=== PATIENT | female | born 1950 | race Caucasian/White ===

== ENCOUNTER 2021-04-06 16:12 | Observation (INO) | payer MEDICARE, OTHER, SELFPAY ==
--- NOTE | 2021-03-25 10:22 | EKG12_ITS ---
Test Reason : PRE-OP Blood Pressure : / mmHG Vent. Rate : 068 BPM Atrial Rate : 068 BPM P-R Int : 152 ms QRS Dur : 072 ms QT Int : 382 ms P-R-T Axes : 034 -01 056 degrees QTc Int : 406 ms Sinus rhythm with Premature atrial complexes Low voltage QRS Septal infarct , age undetermined Abnormal ECG Confirmed by KIMANI CRAWFORD, RENETTA ([id number]), newspaper copy editor AV AQUINO ([id number]) on 03/26/2021 7:53:09 AM Referred By: Twin Horn Confirmed By:RENETTA HARMAN MD
--- NOTE | 2021-03-25 10:30 | EKG12_ITS ---
Test Reason : PRE-OP Blood Pressure : / mmHG Vent. Rate : 073 BPM Atrial Rate : 073 BPM P-R Int : 152 ms QRS Dur : 076 ms QT Int : 372 ms P-R-T Axes : 000 181 122 degrees QTc Int : 409 ms Suspect arm lead reversal, interpretation assumes no reversal Normal sinus rhythm with sinus arrhythmia Low voltage QRS Septal infarct Age undetermined Lateral infarct , age undetermined Abnormal ECG Recommend repeat ECG Confirmed by KIMANI CRAWFORD, RENETTA ([id number]), purchase request editor TAWNY OLIVER ([id number]) on 04/06/2021 4:27:21 PM Referred By: Twin Horn Confirmed By:RENETTA HARMAN MD
[2021-03-25 11:24] LABS: Hemoglobin 14.2 g/dL (12.0-15.0); Mean Corp Hgb Conc 32.3 g/dL (32-36); Mean Corpuscular Hgb 29.2 pg (27.0-32.0); Mean Corpuscular Volume 90.5 fL (81-99); Mean Platelet Vol. 10.5 fl (6.2-12.0); Platelet Count 258 K/mm3 (150-450); RBC Distribution Width CV 13.6 % (11.6-14.6); RBC Distribution Width SD 45.6 fl (35.1-43.9); Red Blood Count 4.86 M/mm3 (4.2-5.4); White Blood Count 5.6 K/mm3 (4.4-11.0)
[2021-03-25 11:51] LABS: Anion Gap 4 (5-15); BUN 21 mg/dL (7-18); BUN/Creat Ratio 27.5 RATIO (10-20); Chloride 101 mmol/L (98-107); Creatinine, Serum 0.76 mg/dL (0.55-1.02); EST Glomerular Filtration Rate 80 mL/min (>60); Est Glom Filt Rate - Afr Amer 96 mL/min (>60); Glucose 83 mg/dL (74-106); Potassium 4.2 mmol/L (3.5-5.1); Sodium Level 135 mmol/L (136-145)
[2021-03-25 11:53] LABS: Magnesium 2.2 mg/dL (1.6-2.6)
[2021-04-06] VITALS (16 sets, daily range): BP systolic 101–153; BP diastolic 58–78; PULSE 72–95; RESP 14–18; TEMP 36.1–36.6; O2SAT 92–100; BMI 28.0
[2021-04-06] MEDS: Gabapentin 600 MG Tablet PO (09:58)
[2021-04-06] MEDS: Acetaminophen 500 MG Tablet 1000 MG PO ×3 (09:58→21:43)
[2021-04-06 10:16] LABS: Bedside Glucose 126 mg/dL (70-110)
[2021-04-06] MEDS: Cefazolin 2 GM in 0.9% Normal Saline 100 ML IV (10:49)
--- NOTE | 2021-04-06 11:30 | KNEE_PTH ---
PATIENT: TIMOTHY RYDER LOC: MS3 U#:[id number] AGE/SX: 71/F ROOM: [facility] [place] RE04/06/[address]: Dr. Twin Horn DO : 1950 BED: 1 DIS: 04/07/2021 SPEC #: [id number] RECD: 04/07/21 07:30 STATUS: CECILIO SHABBIR #: [id number] VEDA: 04/06/21 11:[address]: Twin Horn DEPT: SURGICAL PATHOLOGY RECD BY: Maribell Corrigan ENTERED: 04/07/21 08:30 SP TYPE: TOTAL KNEE OTHR DR: Dr. Cassy Mast DO Tissues: Knee, NOS Procedures: Decalcification bone/plaque Surgery Specimen Level IV HEADER OPERATION: ERAS, total knee replacement robotic arm assist PRE-OP DIAGNOSIS: Osteoarthritis right knee; synovial cyst of popliteal space right knee TISSUE SUBMITTED: Right knee bone and soft tissue MICROSCOPIC DIAGNOSIS Bone and soft tissue, right knee, total knee replacement/resection: Pieces of bone with degenerative osteoarthritic changes. Fibroadipose tissue, fibroconnective tissue and reactive synovial tissue. JESUS:chloe 04/13/2021 MICROSCOPIC DESCRIPTION Slides are reviewed. GROSS DESCRIPTION Received is one container designated bone and soft tissue right knee. The specimen consists of multiple fragments of villar-yellow bone measuring in aggregate 16 x 12 x 2 cm. Also in the specimen container are multiple fragments of yellow-white soft tissue measuring in aggregate 9 x 8 x 2.5 cm. A number of bony fragments contain articular surfaces consistent with tibial plateau and femoral condyle and displaying prominent osteophyte formation, eburnation, and bone erosion. Institutional Research Coordinator sections are submitted in two cassettes as follows: 1 - soft tissue, 2 - bone after decalcification. / AM:chloe 04/07/21 TC:5 CPT: 78413, 60317
--- NOTE | 2021-04-06 12:21 | OP.PCM_ITS ---
Report of Operation Date of Procedure: 04/06/21 Pre-Operative Diagnosis: OA with valgus defoirmity right knee Post-Operative Diagnosis: same Surgery/Procedure Performed:: Right TKR Description of Surgical Findings:: Report of Operation Date of Procedure: Preoperative Diagnosis: [right ] knee primary osteoarthritis Postoperative Diagnosis: [right ] knee primary osteoarthritis Operation: Robotic Assisted Knee Total Arthroplasty, [right ] knee Surgeon: Dr Twin Horn DO Corporate Learning Consultant: Jose Wei PA-C Anesthesia: spina; Anesthesiologist: Dr. Mora Findings: Stable knee with good patella tracking Specimen(s): Bony cuts Complications: No intraoperative complications Estimated Blood Loss: 20 cc IV Fluids: 1000 cc crystalloid Implants Used: 1. Alina Triathlon press fit CR size 5 femur 2. [place] Triathlon size 4 tibia 3. 9 mm CS polyethylene 4. 35 mm patella Brief History Operative Indications: [ 71 y/o female ] with history of [ right ] knee osteoarthrosis with rad iographic findings with loss of joint space, osteophyte formation and subchondral sclerosis. Failed conservative measures as mentioned in the H&P. Discussion of total knee arthroplasty as well as risk and benefits were discussed with the patient including but not limited to blood loss, DVTs, PEs, neurovascular damage, general risk of anesthesia including loss of life, and stiffness or instability were also discussed with the patient. Patient demonstrated understanding and was able to sign informed consent. Procedure: On the date of procedure, patient's [right ] lower extremity was marked in the preoperative area. The patient was then taken back to the operating room where that patient was placed on the table in the supine position. All bony prominences were identified and well-padded. Anesthesia assumed control of the C-spine and airway throughout the remainder of the procedure. A tourniquet was placed on the [ right ] upper thigh and the leg was prepped in a sterile fashion. The surgeon then scrubbed at this time. Upon reentering the room, the [right ] lower extremity was draped in a standard orthopedic fashion. A timeout was then called and everyone agreed upon the side, the site, the procedure to be performed, patient's identity and antibiotics given. Esmarch bandage was used to exsanguinate the extremity and the tourniquet was placed up to 250 mmHg with the knee in flexion. A midline skin incision was made and a sharp dissection was taken down through skin, subcutaneous tissue and fat. The standard medial parapatellar incision was made and the patella was subluxed laterally. An appropriate deep MCL release was done and the fat pad was resected. Our attention was then directed to the patella. The patella was everted and a flat resection was made. The knee was then flexed up and 2 femoral pins were placed inside the incision and 2 tibial pins were placed outside the incision in the medial tibia bicortically. Once this was completed, the 2 checkpoints in the femur and tibia were placed. Knee was then flexed up and the bony landmarks were registered. Once the was completed, the knee taken through range of motion and manually stressed allowing us to plan for an appropriate tibial cut. The robotic arm was brought into the field sterilely and checkpoint and saw were registered. Based on the patient's deformity, the tibial cut was made in [ 2 degrees valgus ]. At this time, the tensioner was then placed in the joint and ligament tension was checked at 90 degrees and full extension. Based on the patient's ligamentous tension, appropriate adjustments were made to the operative plan and ligament releases were done. Once we were happy with our operative plan with balanced flexion and extension g aps, our attention was directed to the femur. The robot was brought into the field sterilely and registered. Posterior condylar cuts, anterior chamfer cuts and anterior cuts were appropriately made for a [ size 5 ] femur. When these were completed, the saws were switched out in the distal femoral and posterior chamfer cuts were made. Protecting the soft tissue throughout this time. A [ size 4 ] base plate was selected. The knee was flexed to 90 degrees and soft tissues and posterior osteophytes were removed from the joint. 40 cc of the periarticular injection was injected into the posterior medial corner of the joint. The appropriate trials were then placed on the femur and tibia. A trial polyethylene was trialed to ensure proper balancing and stability of the knee. The appropriate tibial internal rotation was then marked with a bovie. Our attention was then directed to the patella. The lug holes were drilled and the patella trial was placed. Patellar tracking was checked and deemed appropriate. Once we were happy, lug holes were drilled for the femur and trial components were removed. The tibia was subluxed and pinned into place and the keel was punched and drilled appropriately. Final components were verified and opened. The wound was copiously irrigated with normal saline. The components were impacted into place with the tibia, femur and finally the patella. The trial poly component was placed and the knee was placed in full extension. The tracking, alignment and balance were verified and a [9 mm CS ] polyethylene component was placed. Once the final components were placed an Irrisept lavage was performed and the wound was copiously irrigated with normal saline solution and the periarticular injection was given. the wound was closed in a layer-shields fashion using #1 vicryl interrupted sutures for the arthrotomy, 2-0 interrupted vicryl suture for the subcuticular layer and lebron for final skin closure. A sterile compressive dressing was then placed. The patient was then awakened from anesthesia, transferred to the rbarnet and transferred to the PACU for recovery. My physician administrative library assistant was a vital part of this case. He was important in appropriate retraction during the case, and protection of soft tissues during bony cuts. His intimate knowledge of the case and my steps aided in safe and expedient completion of the procedure as well as appropriate position of the leg during the case. He was also vital in assisting with closure under my direct supervision. Due to the complexity of this case, robotic arm was used to assist in the surgery to improve accuracy and clinical outcomes. Post-op Plan: DVT ppx; ASA 81 mg BID, thigh high compression stockings Follow up: in office in 2 weeks for wound check PT: to start POD #0 at hospital, outpatient PT should be arranged. Preoperative antibiotic: Twin Horn DO Surgeon: Twin Horn physics department chair: Jose Wei Type of Anesthesia: Spinal Anesthesiologist: Manny Mora Specimen's removed: bone Estimated Blood Loss (mL): 20 cc Fluids Replaced: 1000 cc crystalloid Admit VTE Documentation VTE Present on Admission: No VTE Mechan Device Prophylaxis: SCD's and Thigh High CHEKO Hose VTE Pharm Prophylaxis ordered?: Yes
[2021-04-06] MEDS: Lactated Ringers 1,000 ML 125 ML IV (13:00)
[2021-04-06] MEDS: Aspirin 81 MG TAB.CHEW PO (17:35)
[2021-04-06] MEDS: Cefazolin 1 GM/50 ML BAG IV (18:32)
[2021-04-06] MEDS: Atorvastatin Calcium 10 MG Tablet PO (21:43)
[2021-04-06] MEDS: Senna/Docusate Sodium 1 Tablet 2 TABLET PO (21:48)
[2021-04-06] MEDS: oxyCODONE 5 MG Tablet PO (21:48)
[2021-04-07] MEDS: Cefazolin 1 GM/50 ML BAG IV (02:12)
[2021-04-07] MEDS: oxyCODONE 5 MG Tablet PO ×3 (02:15→12:42)
[2021-04-07] MEDS: 0.9% Saline Lock 10 ML Syringe IV ×2 (02:25→09:51)
[2021-04-07 04:08] VITALS: BP 113/51; PULSE 70; RESP 18; TEMP 36.5; O2SAT 97
[2021-04-07] MEDS: Acetaminophen 500 MG Tablet 1000 MG PO ×2 (05:48→14:27)
[2021-04-07 06:37] LABS: Mean Corp Hgb Conc 31.6 g/dL (32-36); Mean Corpuscular Volume 91.8 fL (81-99); Mean Platelet Vol. 10.1 fl (6.2-12.0); Platelet Count 237 K/mm3 (150-450); RBC Distribution Width CV 13.7 % (11.6-14.6); RBC Distribution Width SD 46.2 fl (35.1-43.9); Red Blood Count 4.14 M/mm3 (4.2-5.4)
[2021-04-07 07:05] LABS: Anion Gap 3 (5-15); BUN 15 mg/dL (7-18); BUN/Creat Ratio 24.2 RATIO (10-20); Calcium,Total 8.8 mg/dL (8.5-10.1); Chloride 102 mmol/L (98-107); Creatinine, Serum 0.62 mg/dL (0.55-1.02); EST Glomerular Filtration Rate 101 mL/min (>60); Est Glom Filt Rate - Afr Amer 122 mL/min (>60); Glucose 98 mg/dL (74-106); Potassium 4.4 mmol/L (3.5-5.1); Sodium Level 137 mmol/L (136-145)
--- NOTE | 2021-04-07 07:38 | PN.ORTHO_ITS ---
Objective Data Objective Data Patient sitting at bedside, eating breakfast. Patient states pain is very well managed. Patient states she is ready for discharge home. Patient plans to do outpatient therapy at [facility]. Patient denies chest pain, shortness of breath, calf pain, nausea vomiting. Vital Signs: Vital Signs Temp Pulse Resp BP Pulse Ox 97.7 F L 70 18 113/51 L 97 04/07/21 04:08 04/07/21 04:08 04/07/21 04:08 04/07/21 04:08 04/07/21 04:08 Oxygen Flow Rate (L/min) 1 Oxygen Delivery Method Room Air Weight: 80 kg Body Mass Index (BMI) 28.0 Intake & Output: Intake and Output for Last 24 Hours 04/05/21 04/06/21 04/07/21 23:59 23:59 23:59 Intake Total 3335 / 3335 150 / 150 Output Total 650 / 650 350 / 350 Balance 2685 / 2685 -200 / -200 Lab / Micro Data Result Diagrams: 04/07/21 05:41 04/07/21 05:41 Labs: Laboratory Results - last 24 hr 04/06/21 09:46: POC Glucose 126 H 04/07/21 05:41: WBC 10.0, RBC 4.14 L, Hgb 12.0, Hct 38.0, MCV 91.8, MCH 29.0, MCHC 31.6 L, RDW Std Deviation 46.2 H, RDW Coeff of Letha 13.7, Plt Count 237, MPV 10.1 04/07/21 05:41: Sodium 137, Potassium 4.4, Chloride 102, Carbon Dioxide 32.0, Anion Gap 3 L, BUN 15, Creatinine 0.62, Estim Creat Clear Calc 49.00, Est GFR (MDRD) Af Amer 122, Est GFR (MDRD) Non-Af 101, BUN/Creatinine Ratio 24.2 H, Glucose 98, Calcium 8.8 Micro: Microbiology 03/25/21 10:07 Interface Orders Nasal Screen MRSA/MSSA - Final Physical Exam Narrative Exam, patient sitting comfortably at bedside. Patient is in no respiratory distress. Patient speaking in full sentences. I reviewed and noted patient's labs, and vitals all in medical record. Patient's dressing is clean dry intact. Patient has no calf tenderness. Patient neurovascular is otherwise intact. Const oriented x3 Eyes PERRL Extremity no clubbing, cyanosis or edema Neuro CN's II-XII intact bilaterally Psych mental status grossly normal and affect normal Assessment & Plan Assessment/Plan (1) Status post total right knee replacement not using cement: PLAN: 1. Continue all pain medications as prescribed 2. Continue physical therapy, weight-bear as tolerated with walker 3. Aspirin 81 mg 1 p.o. every 12 hours x30 days for postop DVT prophylaxis 4. Encourage incentive spirometry 5. Discharge home after p.m. therapy 6. Patient will continue outpatient physical therapy at [facility] 7. Patient will follow-up as scheduled with Dr. Horn, see pink sheet
--- NOTE | 2021-04-07 07:43 | PCM.DC ---
Discharge Instructions Diet Discharge Diet: No restrictions Activity Discharge Activity: May Not Drive, May Shower and Use Walker May shower in (days): 3 May resume sexual activity in: No Restrictions Ice area for (Minutes): 30 (every hour while awake.) Weight Bearing Status: Weight bearing as tolerated Keep extremity elevated above heart level: Operative Extremity Dressing / Incision Call your doctor if your incision/area has: Continuous Slow Oozing, Sudden Increased Bleeding, Increased Pain/ Swelling, Increased Redness and Foul Smelling Discharge Call your doctor if you observe: Fever of 101 or Higher, Coldness, Increased Pain, Numbness or Tingling, Change in Color, Shortness of breath, Calf discomfort and Uncontrolled pain Change Dressing in: leave in place till F/U Remove Dressing in: leave in place till F/U Follow Up Care Please Follow Up With: Jose Wei PA-C When: Please call [phone] to schedule a follow up appointment. Test Results: Test results from this visit will be discussed in further detail at your follow-up appointment, if applicable. Discharge Plan Admission Admit Date/Time: 04/06/21 16:12 Primary Reason for Your Visit: Right total knee replacement Attending Provider: Twin Horn Primary Care Provider: Cassy Mast Discharge Orders/Prescriptions Prescriptions: New oxycodone 5 mg Tablet 5 - 10 mg PO Q4H PRN PRN (Reason: Pain Score 4-10) 7 Days Qty: 84 RF: 0 Continued meloxicam 15 mg tablet 15 mg PO DAILY PRN (Reason: Pain) RF: 0 aspirin 81 mg Tablet,Delayed Release (Dr/Ec) 81 mg PO DAILY RF: 0 simvastatin 20 mg tablet 40 mg PO QHS RF: 0 metoprolol succinate [Toprol XL] 25 mg tablet extended release 24 hr 25 mg PO DAILY RF: 0 escitalopram oxalate [Lexapro] 10 mg tablet 10 mg PO DAILY RF: 0 omega-3 fatty acids Capsule 2 cap PO DAILY RF: 0 Women's 50 Plus Daily Formula 400 mcg-500 mg calcium-20 mcg Tablet 1 tab PO DAILY RF: 0 biotin 1,000 mcg Tablet,Chewable 1,000 mcg PO DAILY RF: 0 ylmobut-irbk-zlgtq-oreg-capryl 100 mg-150 mg- 50 mg-150 mg Capsule 1 cap PO DAILY RF: 0 Discontinued acetaminophen [Arthritis Pain Reliever] 650 mg Tablet Extended Release 650 mg PO Q8H PRN (Reason: Pain) RF: 0 Other Ambulatory Orders: 12 Lead EKG (Routine) Location: None Selected Ordered By: Dr. Manny Mora Referrals / Follow Up: Cassy Mast DO [Primary Care Provider] - Disposition Discharge Orders: Discharge Patient (Routine); Ordered 04/07/21 Ordered By: Jose SOTELO
[2021-04-07 08:24] VITALS: BP 112/47; PULSE 65; RESP 16; TEMP 36.6; O2SAT 95
[2021-04-07] MEDS: Aspirin 81 MG TAB.CHEW PO (08:28)
[2021-04-07] MEDS: Escitalopram Oxalate 10 MG Tablet PO (09:47)
[2021-04-07] MEDS: Senna/Docusate Sodium 1 Tablet 2 TABLET PO (09:48)
--- NOTE | 2021-04-07 10:40 | CASEMGMT ---
TUCKER SARAVIA Face to Face with patient for initial transition planning/care coordination assessment. RN CM introduced self and role at [facility]. Patient sitting in chair, alert and oriented. Patient willing to participate in assessment and is able to answer all questions appropriately. Care providers, pharmacy, and demographics verified. Patient wishes to discharge home and is setup with outpatient therapy at [facility]. Patient states she has no further needs or concerns at this time. CM to follow for discharge planning needs that may arise. PCP: Pro Specialists: savage Horn [facility]acy:[facility] Insurance: [facility], Physician [place] Prescription Benefit: yes Living Will/HPOA: yes, daughter Danielle Cordero LNOK: , daughter Living Arrangements: Patient lives with in single story home with 3 steps and railing to enter the home. Patient states she is independent at home. Transportation: , daughter DME/HHC: Patient has raised toilet, grab bars, cane, walker at home. Patient is setup with [facility] for outpatient therapy starting Tuesday. Disposition Plan: Patient to discharge home with outpatient therapy, family support, and follow-up plans in place. Jo Ann HOANG, RN, CM
[2021-04-07 12:33] VITALS: BP 128/59; PULSE 75; RESP 18; TEMP 36.5; O2SAT 98
--- NOTE | 2021-04-07 13:29 | PHA.DC.MC ---
Pharmacy Service has performed discharge medication reconciliation and counseling for this patient. 1. OXYCODONE 5-10MG PO Q4H PRN PAIN 4-10 X 5 DAYS The patient's discharge medication list was reviewed for discrepancies and discrepancies were resolved. Pt wanted medication sent to [facility] in [place] but it was sent to [facility]. This [facility] called retail and asked jules cuello (original ~$40, discount ~$21). Patient okay with paying jules cuello and will fiber picker from retail when her daughter arrives. Home Medications Women's 50 Plus Daily Formula 1 tab PO DAILY 03/23/21 aspirin 81 mg PO DAILY 03/23/21 biotin 1,000 mcg PO DAILY 03/23/21 escitalopram oxalate [Lexapro] 10 mg PO DAILY 03/23/21 meloxicam 15 mg PO DAILY PRN 03/23/21 metoprolol succinate [Toprol XL] 25 mg PO DAILY 03/23/21 omega-3 fatty acids 2 cap PO DAILY 03/23/21 simvastatin 40 mg PO QHS 03/23/21 ifafulu-rjai-jhucw-oreg-capryl 1 cap PO DAILY 03/23/21 oxycodone 5 - 10 mg PO Q4H PRN PRN 7 Days #84 tab 04/07/21 The patient was counseled on the following discharge medications and changes in medications for homegoing were reviewed. The Reason for Use, instructions for use, and potential side effects were reviewed for all new medications. The patient's questions regarding all of their medications were answered. The patient was able to verbally demonstrate an understanding of their discharge medications.
[2021-04-07 14:34] VITALS: BP 135/60; PULSE 78; RESP 18; TEMP 36.8; O2SAT 98
== END 2021-04-07 15:00 | disposition home or self-care (01) ==
LOC: SDC 16:30 → MS3 16:30
PROVIDERS: Anesthesiology; Admitting Provider Orthopaedic Surgery; PCP Family Medicine; Referring Provider Orthopaedic Surgery; Visit Provider Orthopaedic Surgery
PROC: 0SRC0JZ Replacement of Right Knee Joint with Synthetic Substitute, Open Approach (ICD-10-PCS; CPT 27447; principal; 2021-04-06 11:00)
DX: M17.11 Unilateral primary osteoarthritis, right knee (principal); I49.1 Atrial premature depolarization; E78.00 Pure hypercholesterolemia, unspecified; I10 Essential (primary) hypertension; Z79.82 Long term (current) use of aspirin; Z79.899 Other long term (current) drug therapy; F41.9 Anxiety disorder, unspecified; F32.9 Major depressive disorder, single episode, unspecified
CPT/HCPCS: 01402; 27447; 64447; S2900; 36415; 80048; 82962; 83735; 85027; 87077; 87081; 88305; 88311; 93005; 96361; 96365; 96366; 97110; 97116; 97162; 97166; 97530; 97535; 99218; 99251; C1776; J7040; J7120; A4216; G0378; G0379; G0463; J2405

== ENCOUNTER → 2021-04-13 11:19 | Outpatient (CLI) | payer MEDICARE, OTHER, SELFPAY ==
[2021-04-06 16:09] VITALS: BMI 28.0
--- NOTE | 2021-04-13 11:21 | VDLE_ITS ---
Reason For Study: Pain in RLE RIGHT GSV is normal. CFV is compressible, spontaneous, phasic, competent and demonstrates normal augmentation. FV is compressible, spontaneous, phasic, competent and demonstrates normal augmentation. POP V is compressible, spontaneous, phasic, competent and demonstrates normal augmentation. T/P Trunk is compressible. RT PerV is compressible. Acute deep vein thrombosis is noted in the right posterior tibial vein. Procedure This is a venous duplex using B-mode, color flow and spectral Doppler. Exam performed in department. A preliminary report was called and/or faxed to [facility]. VL/Venous Duplex US, Unilateral Interpretation Summary Acute deep vein thrombosis is noted in the right posterior tibial vein. The rem ainder of the right lower extremity deep venous system is patent and compressible. Valvular compete nce appears intact within the proximal deep venous system on the right . The right great saphenous vein appears patent and compressible segmentally. Ordering Physician: Twin Horn Referring Physician: Cassy Mast Performed By: Jo Ann Wheeler RVT
== END ==
PROVIDERS: PCP Family Medicine; Referring Provider Orthopaedic Surgery; Visit Provider Orthopaedic Surgery
DX: M79.604 Pain in right leg (principal)
CPT/HCPCS: 93971